=== PATIENT | female | born 1995 | race African-American/Black ===

== ENCOUNTER 2025-05-07 09:31 | Emergency (ER) | payer OTHER, SELFPAY ==
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
[2025-05-07 09:57] VITALS: BP 155/92; PULSE 74; RESP 16; TEMP 36.9; O2SAT 100
== END 2025-05-07 10:43 | disposition short-term general hospital (02) ==
PROVIDERS: Emergency Provider Nurse Practitioner Family
DX: R51.9 Headache, unspecified (principal); M54.2 Cervicalgia; M79.622 Pain in left upper arm; M79.642 Pain in left hand; M54.6 Pain in thoracic spine; M54.50 Low back pain, unspecified; V43.52XA Car driver injured in collision with other type car in traffic accident, initial encounter
CPT/HCPCS: 99212; G0463

== ENCOUNTER 2025-05-07 10:58 | Emergency (ER) | payer OTHER, SELFPAY ==
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
[2025-05-07 10:59] VITALS: BP 149/93; PULSE 73; RESP 18; TEMP 36.9; O2SAT 100
--- OUTSIDE RECORDS SUMMARY | 2025-05-07 13:06 | XMS_ITS | Clinical Summary ---
Author Organization [facility] Address [address] [address] Care Team Providers Care Wood Cabinet Finisher Name Role Phone Unavailable Primary Care Provider Unavailabl e Allergies No known active allergies Medications tiZANidine (ZANAFLEX) 4 mg TabletIndication s:Muscle spasm Take 1 Tablet (4 mg) by mouth every 6 hours as needed for Spasm. 15 Tablet 09/28/2023 Active amLODIPine (NORVASC) 10 mg tablet Take 10 mg by mouth daily. 09/19/2023 Active butalbital-aceta minophen-caffein e (FIORICET) 50-325-40 mg tabletIndication s:Nonintractable headache, unspecified chronicity pattern, unspecified headache type Take 1 Tablet by mouth every 4 hours as needed for Migraine. 20 Tablet 02/03/2024 Active Active Problems No known active problems Social History Tobacco Use Types Packs/Day Years Used Date Smoking Tobacco: Never Assessed Feeling Safe Answer Date Recorded Are you in a relationship wi th someone who hurts you emotionally and/or physically? 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 Gender Identity Not on file Sexual Orientation Not on file Last Filed Vital Signs Vital Sign Reading Time Taken Comments Blood Pressure 154/90 02/03/2024 10:00 PM CDT Pulse 79 02/03/2024 10:00 PM CDT Temperature 37.1 C (98.7 F) 02/03/2024 8:32 PM CDT Respiratory Rate 18 02/03/2024 10:00 PM CDT Oxygen Saturation 97% 02/03/2024 10:00 PM CDT Inhaled Oxygen Concentration - - Weight 79.4 kg (175 lb) 02/03/2024 5:50 PM CDT Height 152.4 cm (5') 02/03/2024 5:50 PM CDT Body Mass Index 34.18 02/03/2024 5:50 PM CDT Plan of Treatment Health Maintenance Due Date Last Done Comments HEPATITIS B VACCINES (1 of 3 - 19+ 3-dose series) 10/2011 HPV/Cotest (21-29) 2014 HPV VACCINES (1 - 3-dose SCDM series) 02/05/2020 CERVICAL CANCER SCREENING 2023 HPV/Cotest (30-65) 2023 PAP SMEAR 2023 DTAP/TDAP/TD VACCINES (2 - Td or Tdap) 04/03/2023 INFLUENZA VACCINE (#1) 2025 Insurance [employer] MEDICAID [place] ACCESS
--- OUTSIDE RECORDS SUMMARY | 2025-05-07 13:06 | XMS_ITS | Clinical Summary ---
Author Organization [facility] Address [facility] [place] [address] Care Team Providers Care Shotgun Shell Reprinting Unit Operator Name Role Laurie Levi NP Primary Care Provider Robinson Trevizo DO Unavailable [phone] Rito Oneal MD Unavailable [phone] Elisha Jean NP Unavailable [phone] Allergies No known active allergies Medications albuterol HFA (PROVENTIL HFA,VENTOLIN HFA,PROAIR HFA) 90 mcg/actuation inhaler Inhale 2 puffs every 6 (six) hours as needed Active ergocalciferol (VITAMIN D) 50,000 unit capsule TK ONE C PO ONCE A WEEK 0 Active atorvastatin (LIPITOR) 20 mg tablet TK 1 T PO QD 0 Active medroxyPROGESTE Thony 150 mg/mL injection OFFICE USE ONLY 0 Active oxyCODONE-aceta minophen (PERCOCET) 5-325 mg per tabletIndicatio ns:Pain Take 1-2 tablets by mouth every 4 (four) hours as needed for pain 30 tablet 0 Active Additional Information Patient not taking.Reported on 07/12/2024 docusate sodium (COLACE) 100 mg capsuleIndicati ons:constipatio n Take 1 capsule (100 mg total) by mouth 2 (two) times a day with a glass of water 30 capsule 0 Active Additional Information Patient not taking.Reported on 07/12/2024 amLODIPine (NORVASC) 10 mg tablet Take 1 tablet (10 mg total) by mouth daily Active losartan (COZAAR) 25 mg tablet Take 1 tablet (25 mg total) by mouth daily Active butalbital-acet aminophen-caffe ine (ESGIC) 50-325-40 mg per tablet TAKE 1 TABLET BY MOUTH EVERY 4 HOURS NEEDED FOR MIGRAINE 4 Active Active Problems Problem Noted Date Diagnosed Date Abnormal thyroid uptake 07/12/2024 Assessment & Plan (07/12/2024 10:28 AM MARINE UNDERWRITER): Patient has normal thyroid function test T3 uptake lab is not clinically used, no clinical significance Patient clinically euthyroid Recheck thyroid function test to reassure patient I had checked her thyroid with ultrasound - quick office check was done and I did not notice any structural abnormality with her thyroid gland Repeat thyroid function test comes back normal patient is released from our care back to PCP Post-operative state 05/14/2020 Umbilical hernia 03/12/2020 Overview (03/12/2020): Added automatically from request for surgery [id number] Encounters Date Type Department Care Team Description 04/23/[address] [facility] Medicine Occupational Health [address] [facility] [address] [place] [address] Kendal Pickard 02/27/[address] [facility] Medicine Orthopaedic Surgery [address] [facility] [address] [place] [address] Jose Miguel Nieto MD from Last 3 Months Immunizations Immunization Administration Dates Next Due Influenza, Trivalent, Cell C ulture-based MDCK, Preservative Free, Antibiotic Free, Intramuscular 04/23/2025 Medical History Medical History Date Comments Asthma Hyperlipidemia Family History Medical History Relation Name Comments No Known Problems Father No Known Problems Mother Relation Name Status Comments Father Mother Social History Tobacco Use Types Packs/Day Years Used Date Smoking Tobacco: Never Smokeless Tobacco: Never Alcohol Use Standard Drinks/Week Comments Never 0 (1 standard drink = 0.6 oz pur e alcohol) AUDIT-C Answer Date Recorded Q1: How often do you have a drink containing alc ohol? Never 03/12/2020 Average Number of Drinks Not on file 020 Frequency of Binge Drinking Not on file 03/2020 Comments Unknown Sex and Gender Information Value Date Recorded Sex Assigned at Not on file Legal Sex Female 4:24 AM MARINE UNDERWRITER Gender Identity Not on file Sexual Orientation Not on file Last Filed Vital Signs Vital Sign Reading Time Taken Comments Blood Pressure 136/82 07/12/2024 8:26 AM MARINE UNDERWRITER Pulse 91 07/12/2024 8:26 AM MARINE UNDERWRITER Temperature 36.8 C (98.2 F) 04/08/2020 10:50 AM CDT Respiratory Rate 12 07/12/2024 8:26 AM MARINE UNDERWRITER Oxygen Saturation 96% 04/08/2020 11:50 AM CDT Inhaled Oxygen Concentration - - Weight 79.4 kg (175 lb) 07/12/2024 8:26 AM MARINE UNDERWRITER Height 152.4 cm (5') 07/12/2024 8:26 AM MARINE UNDERWRITER Body Mass Index 34.18 07/12/2024 8:26 AM MARINE UNDERWRITER Plan of Treatment Health Maintenance Due Date Last Done Comments Cervical Cancer Screening 1993 Depression Screening 1993 Hepatitis C Screening 1993 Varicella Vaccines (1 of 2 - 13+ 2-dose series) 2006 Hepatitis B Screening 2011 Regular Well Visit/Exam 18-64 2011 HPV Vaccines (1 - 3-dose SCD M series) 02/05/2020 Covid-19 Vaccine (3 - Pfizer risk series) 07/03/2021 06/05/2021, 05/15/2021 DTaP/Tdap/Td Vaccine (3 - Td or Tdap) 04/03/2023 04/03/2013, 01/30/2009, 05/25/1999 Influenza Vaccine Completed 04/23/2025, 04/03/2013 Pneumococcal vaccine <65 Aged Out No longer eligible based on patient's age to complete this topic Insurance [facility] CHOICE PLUS [facility] HMO/PPO Address: [address] [address] [place] [address] ANTHEM ACCESS Member Subscriber Plan / Payer (Ef fective 2023-Present) Name:Rasheed Brizuela Relation to Subscriber:Self Name:Rasheed Brizuela Payer ID:[id number] (NAIC) Type:[employer] Address: [address] [place] [address] ANTHEM ACCESS Member Subscriber Plan / Payer (Ef fective 2023-Present) Name:Rasheed Brizuela Relation to Subscriber:Self Name:Rasheed Brizuela Payer ID:[id number] (NAIC) Type:[employer] Address: [address] [place] [address] Care Teams Shotgun Shell Reprinting Unit Operator Relationship Specialty Start Date End Date Laurie Lainez, DERRICK [address] [address] PCP - General Family Medicine 04/19/24 Robinson Trevizo DO [address] [address] Family Medicine 04/19/24 Rito Oneal MD [address] [address] Surgeon General Surgery 04/08/20 Elisha Jean V., DERRICK [address] [place] [address] [address] [address] Nurse Practitioner 04/24/24
--- OUTSIDE RECORDS SUMMARY | 2025-05-07 13:06 | XMS_ITS | Clinical Summary ---
Author Organization [facility] Address [address] [facility] [place] [address] Care Team Providers Care Is Analyst Name Role Phone Fatou, Laurie ZUNIGA-ROXANNE Primary Care Provider Source Comments [facility],non-owned Affiliates and Associated Physician Practices is amultiple site organization consisting of ambulatory clinics and hospital sitesin [place], [place], [place] and [place]. This disclosure is being madepursuant to the Care Everywhere program and may not contain all information available regarding this patient. Last updated 18.[facility] Allergies No known active allergies Medications * Be aware that medications may not be up to date on this document. Alwaysverify current medications with the patient. albuterol HFA (PROVENTIL;NEIL TOLIN;PROAIR) 108 (90 BASE) MCG/ACT inhaler Inhale 2 Puffs by mouth every 6 hours as needed. Active acetaminophen (TYLENOL) 325 MG tablet Take 325 mg by mouth every 4 hours as needed for Fever or Pain Maximum allowable Acetaminophen amount = 4 Grams (4000 mg) / 24 hours. Active ibuprofen (MOTRIN) 600 MG tablet Take 1 tablet by mouth every 6 hours as needed for Pain 60 tablet 2 9 Active Additional Information Patient not taking.Reported on 07/27/2019 lanolin (LANOLIN) ointment Apply to affected area as needed (Sore or cracked nipples.) 28 g 2 9 Active Additional Information Patient not taking.Reported on 07/27/2019 NIFEdipine CR 24hr (ADALAT CC) 30 MG tablet Take 1 tablet by mouth daily before breakfast Take on an empty stomach. 30 tablet 1 0 Active cyclobenzaprin e (Flexeril) 10 MG tablet Take 1 (one) tablet by mouth 3 times daily as needed for Muscle Spasms 20 tablet 4 Active lidocaine (Lidoderm) 5 % patch Apply 1 (one) patch to skin once daily Apply patch to most painful area and remove after 12 hours. May reapply a new patch 12 hours later. 10 patch 4 Active Active Problems Problem Noted Date Diagnosed Date care following vaginal delivery 07/27 Acute intractable headache 07/27/2019 Elevated blood pressure read ing without diagnosis of hypertension 06/30/2019 Uterine contractions during 06/29/2019 Cramping affecting , antepartum 019 Pelvic pain affecting pregna ncy in third trimester, antepartum 05/11/2019 Supervision of normal 03/17/2013 Lower urinary tract infectious disease 3 Overview (05/11/2015): Nitrite POS UTI on u/a: NEEDS Rx. 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 Gender Identity Not on file Sexual Orientation Not on file Last Filed Vital Signs Vital Sign Reading Time Taken Comments Blood Pressure 149/116 09/29/2023 4:55 PM CDT Pulse 78 09/29/2023 4:55 PM CDT Temperature 37 C (98.6 F) 09/29/2023 4:55 PM CDT Respiratory Rate 18 09/29/2023 4:55 PM CDT Oxygen Saturation 99% 09/29/2023 4:55 PM CDT Inhaled Oxygen Concentration - - Weight 79.4 kg (175 lb) 09/29/2023 4:55 PM CDT Height 152.4 cm (5') 09/29/2023 4:55 PM CDT Body Mass Index 34.18 09/29/2023 4:55 PM CDT Plan of Treatment Health Maintenance Due Date Last Done Comments HIV SCREENING 02/05/2008 HEPATITIS C SCREENING 01/31/2011 HEPATITIS B VACCINE (1 of 3 - 19+ 3-dose series) 02/05/2012 PAP SMEAR 2014 HPV VACCINE (1 - 3-dose SCDM series) 02/05/2020 DTAP/TDAP/TD VACCINES (2 - T d or Tdap) 04/03/2023 04/03/2013 DEPRESSION SCREENING 07/04/2024 COVID-19 VACCINE (3 - 2024-2 6 season) 2025 06/05/2021, 05/15/2021 INFLUENZA VACCINE (#1) 2025 04/03/2013 ZOSTER VACCINE (1 of 2) 2043 HIB VACCINE Aged Out No longer eligi ble based on patient's age to complete this topic MENINGOCOCCAL (Group B) VACCINE SHARED DECISION-MAKING Aged Out No longer eligible based on patient's age to complete this topic MENINGOCOCCAL GROUPS A/C/Y/W VACCINE Aged Out No longer eligible b ased on patient's age to complete this topic PNEUMOCOCCAL VACCINE Aged Out No long er eligible based on patient's age to complete this topic Insurance [place] MED[place]ID - [employer] [facility] MEDICAID LIMITED BENEFIT - [facility] [place]ID - [place] [facility] [place] [address] [place] [address] [place] [address] [employer] Liability [facility] [employer] [place] [address] ANTH [place]ID - [place] Advance Directives * Full Code (Latest Code Status on File) Date Activated Date Inactivated Comments 07/27/2019 12:06 PM 07/27/2019 3:49 PM * Full Code Date Activated Date Inactivated Comments 07/16/2019 1:53 PM 07/18/2019 12:17 PM * Full Code Date Activated Date Inactivated Comments 07/16/2019 12:54 PM 07/16/2019 1:53 PM * Full Code Date Activated Date Inactivated Comments 06/30/2019 12:57 AM 07/02/2019 1:55 PM * Full Code Date Activated Date Inactivated Comments 06/30/2019 12:48 AM 06/30/2019 12:57 AM Care Teams Is Analyst Relationship Specialty Start Date End Date Laurie Lainez APNP-SUPPORT ARCHITECT [address] [place] [address] PCP - General Family Medicine 12/26/22
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
[2025-05-07 14:33] LABS: BEDSIDEPREGUCG Negative (Negative)
--- OUTSIDE RECORDS SUMMARY | 2025-05-07 15:31 | XMS_ITS | Clinical Summary ---
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
--- OUTSIDE RECORDS SUMMARY | 2025-05-07 15:31 | XMS_ITS | Clinical Summary ---
Author Organization [facility] [employer] Address [address] [facility] [place] [address] Care Team Providers Care Tool Pusher Name Role Phone Fatou, Laurie ZUNIGA-ROXANNE Primary Care Provider Source Comments [facility] [employer],non-owned Affiliates and Associated Physician Practices is amultiple site organization consisting of ambulatory clinics and hospital sitesin [place], [place], [place] and [place]. This disclosure is being madepursuant to the Care Everywhere program and may not contain all information available regarding this patient. 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 Gender Identity Not on file Sexual Orientation [...] [employer] MEDICAID LIMITED BENEFIT - [facility] MEDICAID - [place] [facility] [place] [place] [address] [place] [address] THIRD CONSTITUTION PARTY LIABILITY [employer] Liability [facility] THIRD CONSTITUTION PARTY [place] [address] ANTH [place]ID - [place] Advance Directives * [...] 12:48 AM 06/30/2019 12:57 AM Care Teams Tool Pusher Relationship Specialty Start Date End Date Laurie Lainez APNP-BIOMEDICAL SCIENTIST [address] [place] [address] PCP - General Family Medicine 12/26/22
--- OUTSIDE RECORDS SUMMARY | 2025-05-07 15:31 | XMS_ITS | Clinical Summary ---
Author Organization [facility] Address [facility] [place] [address] Care Team Providers Care District Representative Name Role Laurie Levi NP Primary Care Provider Robinson Trevizo DO Unavailable [phone] Rito Oneal MD Unavailable [phone] Elisha Jean NP Unavailable [phone] Allergies No known active allergies Medications albuterol [...] 07/12/2024 Assessment & Plan (07/12/2024 10:28 AM VETERANS' COORDINATOR): Patient has normal thyroid function test T3 [...] (03/12/2020): Added automatically from request for surgery [id number] Encounters Date Type Department Care Team Description 04/23/2025 Immunization [facility] Medicine Occupational Health [address] [facility] 5th [address] [place] [address] Kendal Pickard 02/27/2025 Orders Only [facility] Medicine Orthopaedic Surgery [address] [facility] 2nd [address] [place] [address] Jose Miguel Nieto MD from [...] on file Legal Sex Female 4:24 AM VETERANS' COORDINATOR Gender Identity Not on file Sexual Orientation Not on file Last Filed Vital Signs Vital Sign Reading Time Taken Comments Blood Pressure 136/82 07/12/2024 8:26 AM VETERANS' COORDINATOR Pulse 91 07/12/2024 8:26 AM VETERANS' COORDINATOR Temperature 36.8 C (98.2 F) 04/08/2020 10:50 AM CDT Respiratory Rate 12 07/12/2024 8:26 AM VETERANS' COORDINATOR Oxygen Saturation 96% 04/08/2020 11:50 AM CDT Inhaled Oxygen Concentration - - Weight 79.4 kg (175 lb) 07/12/2024 8:26 AM VETERANS' COORDINATOR Height 152.4 cm (5') 07/12/2024 8:26 AM VETERANS' COORDINATOR Body Mass Index 34.18 07/12/2024 8:26 AM VETERANS' COORDINATOR Plan of Treatment Health Maintenance Due Date [...] patient's age to complete this topic Insurance [facility] HMO/PPO Address: [address] [address] [place] [address] ANTHEM ACCESS ANTHEM ACCESS Care Teams District Representative Relationship Specialty Start Date End Date Laurie Lainez, DERRICK [address] [address] PCP - General Family Medicine 04/19/24 Robinson Trevizo DO [address] [address] Family Medicine 04/19/24 Rito Oneal MD [address] [address] Surgeon General Surgery 04/08/20 Elisha Jean V., DERRICK [address] [place] [address] [address] [address] Nurse Practitioner 04/24/24
[2025-05-07] MEDS: KETOROLAC (*BKC) 60 MG/2 ML VIAL IM (15:45)
== END 2025-05-07 16:08 | disposition home or self-care (01) ==
PROVIDERS: Emergency Provider Physician Assistant; PCP Nurse Practitioner Family
DX: S16.1XXA Strain of muscle, fascia and tendon at neck level, initial encounter (principal); S39.012A Strain of muscle, fascia and tendon of lower back, initial encounter; M47.816 Spondylosis without myelopathy or radiculopathy, lumbar region; M47.814 Spondylosis without myelopathy or radiculopathy, thoracic region; V49.50XA Passenger injured in collision with unspecified motor vehicles in traffic accident, initial encounter
CPT/HCPCS: 70450; 72125; 72128; 72131; 73030; 73130; 81025; 96372; 99284; J1885